=== PATIENT | male | born 1955 | race Caucasian/White ===

== ENCOUNTER 2023-07-10 08:10 | Day surgery (SDC) | payer MEDICARE, OTHER ==
[2023-07-08 13:16] VITALS: BMI 21.7
[2023-07-10] MEDS ORDERED: Oxymetazoline HCl 0.05% (30 ML BOT) ONE ×2 (09:04→10:10)
[2023-07-10 09:16] LABS: Hematocrit 39.1 % (42.0-52.0); Hemoglobin 13.1 g/dL (14.0-18.0)
[2023-07-10 10:04] LABS: Calcium 9.4 mg/dL (7.6-10.4); Chloride 105 mmol/L (98-107); Glucose 97 mg/dL (80-115); Potassium 3.8 mmol/L (3.5-5.1); Sodium 137 mmol/L (136-145)
[2023-07-10] MEDS ORDERED: Midazolam HCl 2 mg/2 ml Vial ONE (10:10)
[2023-07-10] MEDS ORDERED: Lidocaine 1% PF 5 ML VIAL ONE (10:10)
[2023-07-10] MEDS ORDERED: fentaNYL PF 100 MCG/2 ML SYRINGE ONE (10:10)
[2023-07-10] MEDS ORDERED: Ondansetron PF 4 MG/2 ML Vial ONE (10:10)
[2023-07-10] MEDS ORDERED: PROPOFOL 20 ML ONE (10:10)
[2023-07-10] MEDS ORDERED: EPINEPHrine 1 MG/ML VIAL ONE (10:10)
[2023-07-10] MEDS ORDERED: Dexamethasone 20 MG/5 ML VIAL ONE (10:10)
[2023-07-10 10:11] LABS: Anion Gap 11 mmol/L (10-20); Carbon Dioxide 25 mmol/L (23-31)
[2023-07-10] MEDS ORDERED: Lidocaine 1% (PF) 30 ML VIAL ONE (10:11)
[2023-07-10 10:26] LABS: Calc. Creatinine Clearance 80 mL/min (70-130); Estimated GFR 93
[2023-07-10 10:27] LABS: BUN (Urea Nitrogen) 16 mg/dL (8.4-25.7)
== END 2023-07-10 13:07 | disposition home or self-care (01) ==
LOC: SDC 08:10
PROVIDERS: ATTEND Otolaryngology Plastic Surgery within the Head & Neck
PROC: 09TR8ZZ Resection of Left Maxillary Sinus, Via Natural or Artificial Opening Endoscopic (ICD-10-PCS; principal; 2023-07-10)
PROC: 09TQ8ZZ Resection of Right Maxillary Sinus, Via Natural or Artificial Opening Endoscopic (ICD-10-PCS; 2023-07-10)
PROC: 09TL8ZZ Resection of Nasal Turbinate, Via Natural or Artificial Opening Endoscopic (ICD-10-PCS; 2023-07-10)
DX: J34.3 Hypertrophy of nasal turbinates (principal); J01.01 Acute recurrent maxillary sinusitis; J01.21 Acute recurrent ethmoidal sinusitis; D18.09 Hemangioma of other sites; Q28.2 Arteriovenous malformation of cerebral vessels; I10 Essential (primary) hypertension; Z79.899 Other long term (current) drug therapy
CPT/HCPCS: 30117; 30140; 31255; 31256; 80048; 85014; 85018; 93005; J0171; 88307; 93010; J1100; J2001; J2250; J2405; J2704